=== PATIENT | male | born 1985 | race Caucasian/White ===

== ENCOUNTER 2022-06-09 20:15 | Emergency (ER) | payer OTHER ==
[~2022-06-09] VITALS: Ht 182.9 cm; Wt 72.6 kg
[2022-06-09] MEDS ORDERED: DUI500 PO (22:40)
== END 2022-06-09 23:04 | disposition home or self-care (01) ==
LOC: ER 20:15
DX: S91.322A Laceration with foreign body, left foot, initial encounter (principal); V29.39XA Other motorcycle (driver) (passenger) injured in unspecified nontraffic accident, initial encounter; Y93.55 Activity, bike riding; Y92.413 State road as the place of occurrence of the external cause